=== PATIENT | male | born 1970 | race Caucasian/White ===

== ENCOUNTER 2025-07-12 13:54 | Outpatient (CLI) | payer BC ==
[2025-07-12 14:32] LABS: #Basophils 0.04 10x3/uL (0.0-0.2); #Eosinophils Less than 0.03 10x3/uL (0.0-0.5); #Monocytes 0.50 10x3/uL (0.0-1.1); #Neutrophils 4.33 10x3/uL (1.5-8.4); %Basophils 0.6 % (0.0-2.0); %Eosinophils 0.3 % (0.0-6.0); %Lymphocytes 26.4 % (18.0-47.0); %Monocytes 7.5 % (0.0-10.0); %Neutrophils 65.0 % (40.0-75.0); Hematocrit 44.0 % (38.8-50.0); Hemoglobin 15.1 g/dL (13.5-17.5); Mean Corpuscular Hemoglobin 29.9 pg (27.0-33.0); Mean Corpuscular Volume 87.1 fL (81.2-95.1); Platelet Count 206 10x3/uL (150-450); Red Blood Cell (RBC) Count 5.05 10x6/uL (4.32-5.72); White Blood Cell (WBC) Count 6.66 10x3/uL (3.5-10.5)
[2025-07-12 14:52] LABS: Anion Gap 12 mmol/L (10-20); BUN (Urea Nitrogen) 14 mg/dL (8.4-25.7); Calc. Creatinine Clearance 0 mL/min (70-130); Calcium 9.2 mg/dL (7.8-10.44); Carbon Dioxide 25 mmol/L (22-29); Chloride 108 mmol/L (98-107); Glucose 130 mg/dL (70-105); Potassium 4.1 mmol/L (3.5-5.1); Sodium 141 mmol/L (136-145)
== END 2025-07-12 13:55 | disposition home or self-care (01) ==
LOC: CSHLAB 13:54
PROVIDERS: ATTEND Surgery
DX: Z01.818 Encounter for other preprocedural examination (principal); K40.20 Bilateral inguinal hernia, without obstruction or gangrene, not specified as recurrent; K43.9 Ventral hernia without obstruction or gangrene; K42.9 Umbilical hernia without obstruction or gangrene; R94.31 Abnormal electrocardiogram [ECG] [EKG]
CPT/HCPCS: 80048; 85025; 93005; 93010

== ENCOUNTER 2025-07-14 06:50 | Day surgery (SDC) | payer BC ==
[2025-07-12 14:08] VITALS: BMI 25.2
[2025-07-14] MEDS ORDERED: CEFAZOLIN 2 GM VIAL ONE (07:04)
[2025-07-14] MEDS ORDERED: Bupivacaine/Epinephrine 0.25% 30 ML VIAL ONE (07:05)
[2025-07-14] MEDS ORDERED: PROPOFOL 40 ML ONE (07:45)
[2025-07-14] MEDS ORDERED: Ondansetron PF 4 MG/2 ML Vial ONE ×2 (07:46→13:26)
[2025-07-14] MEDS ORDERED: Lidocaine 1% PF 5 ML VIAL ONE (07:46)
[2025-07-14] MEDS ORDERED: Rocuronium Bromide 10 MG/ML (10ML VIAL) ONE (07:46)
[2025-07-14] MEDS ORDERED: Acetaminophen 500 MG TAB ONE (08:13)
[2025-07-14] MEDS ORDERED: Ketorolac Tromethamine 30 MG (1 mL) VIAL ONE (08:56)
[2025-07-14] MEDS ORDERED: KETAMINE 100 MG/ML (5ML VIAL) ONE (09:03)
[2025-07-14] MEDS ORDERED: Bupivacaine HCl 0.5%/Epinephrine 1:200,000/PF 30 ml Vial ONE (09:07)
[2025-07-14] MEDS ORDERED: SUGAMMADEX SODIUM 200 MG/2 ML VIAL ONE (09:21)
[2025-07-14] MEDS ORDERED: HYDROcodone/Acetaminophen 10/325 mg Tablet ONE (10:24)
== END 2025-07-14 11:27 | disposition home or self-care (01) ==
LOC: CSHSDC 06:50
PROVIDERS: ATTEND Surgery
PROC: 0WQF0ZZ Repair Abdominal Wall, Open Approach (ICD-10-PCS; principal; 2025-07-14)
PROC: 0YQA4ZZ Repair Bilateral Inguinal Region, Percutaneous Endoscopic Approach (ICD-10-PCS; principal; 2025-07-14)
DX: K40.20 Bilateral inguinal hernia, without obstruction or gangrene, not specified as recurrent (principal); K43.9 Ventral hernia without obstruction or gangrene; K42.9 Umbilical hernia without obstruction or gangrene; Z88.8 Allergy status to other drugs, medicaments and biological substances
CPT/HCPCS: C1781; J1100; J1885; J2405; J2704; J3010; S2900